=== PATIENT | female | born 1995 | race Hispanic/Latino ===

== ENCOUNTER 2016-10-22 06:32 | Emergency (ER) | payer OTHER ==
[~2016-10-22] VITALS: Ht 149.9 cm; Wt 52.3 kg
[~2016-10-22 06:32] MED LIST: PHEN-777 PO; SULF1TAB7 PO
[2016-10-22 06:37] VITALS: BP 97/50; PULSE 76; RESP 16; O2SAT 99
[2016-10-22] MEDS ORDERED: 0.9% Sodium Chloride 1,000 ML IV ONE (06:45)
--- NOTE | 2016-10-22 06:47 | ED.REPORT ---
HPI-Preg Under 20 Weeks Date of Service Oct 22, 2016 ED Provider: Ej Douglas MD The patient is a female who is currently 11 weeks , who presents to the emergency department complaining of vaginal bleeding and cramping that started a few weeks ago. These symptoms initially lasted for about 2 weeks. The symptoms resolved and she had a followup appointment on October 15 at [facility] women' s health and heart tones were noted during this visit. The bleeding returned today and she noticed bright red blood with dark clots. Her LNMP was July 19. Over the last few weeks she has noticed increased urination frequency, fatigue, and an abnormal white vaginal discharge. She denies fever, chills, dysuria, vomiting or diarrhea. She denies history of sexually transmitted diseases. Nursing Notes Stated Complaint: BLEEDING- 11 WEEKS Chief Complaint: Female Abdominal Pain Nursing Notes Reviewed: Yes Allergies: Coded Allergies: No Known Allergies (Unverified Allergy, Unknown, 01/01/14) Scheduled Sulfamethoxazole/Trimeth 800-160 mg (Bactrim DS) 1 Each Tablet 1 TABLET PO BID Scheduled PRN Phenazopyridine (Phenazopyridine) 200 Mg Tablet 200 MG PO TID PRN PRN dysuria General Time Seen by Provider: 06:47 Chief Complaint Abdominal cramping, Vaginal bleeding Context: : Known 1st trim , ... (2), Para... (1) Hx Obtained From: Patient Arrived By: Walk-in Onset Occurred: More than a week ago... Symptom Duration: Intermittent Progression Since Onset: Intermittent Location: : Suprapubic Quality: Cramping Severity: Current: Mild Severity: Maximum: Moderate Recent Healthcare: No recent doctor visit, No recent hospitalization Similar Sx Previous: No Past Medical History Past Medical History Denies Past Surgical History Denies Family History Noncontributory Smoking History Never Smoker Social History Alcohol Use: "Social" Other Social History: Local resident Ambulatory Status Independent Review of Systems Constitutional: Denies: Chills, Fever GI: Reports: Abdominal pain, Denies: Diarrhea, Vomiting Female: Reports: Pelvic pain, , Vaginal bleeding - abnl, Vaginal discharge, Denies: Dysuria Complete sys rev & neg: except as marked. Physical Exam Initial Vital Signs Vital Signs (First) Date Time Temp Pulse Resp B/P Pulse Ox O2 Delivery O2 Flow Rate FiO2 10/22/16 06:37 37.0 76 16 97/50 99 Room Air Initial VS: Reviewed Head / Eyes: Atraumatic, Normocephalic, PERRL ENT: Mucous membranes moist, Conjunctiva normal, No scleral icterus Neck: Supple, Non-tender, Full range of motion Respiratory: Breath sounds normal, Clear to auscultation, No respiratory distress Cardiovascular: Regular rate & rhythm, Heart sounds normal, Intact distal pulses Back: No CVA tenderness Lymphatic: No lymphadenopathy Extremities: Vascular intact, Neuro intact, No swelling, No tenderness Skin: Warm, Dry, No cyanosis Neurologic: Alert, Oriented, Nonfocal Psychiatric: Mood/affect normal, Behavior normal, Normal thought content General/Constitutional: Awake, Alert Abdomen: Atraumatic, Soft, Non-tender, No guarding, No rebound Female Genitourinary: Electrical And Radio Mock Up Mechanic present, External genitalia NL There is bright red blood in vaginal canal and cervical os however the cervix is completely closed and she is relatively nontender on exam. Lower Extremity / Pelvis / MS: Neurologic intact, Vascular intact, No edema No calf swelling or tenderness. Interpretation & Diagnostics Lab Results Interpretation Result Diagram: 10/22/16 0720 10/22/16 0720 Test 10/22/16 07:20 10/22/16 07:33 White Blood Count 3.5th/mm3 (3.8-10.1) Red Blood Count 3.44mil/mm3 (3.90-5.20) Hemoglobin 10.3g/dL (12.0-15.6) Hematocrit 29.5% (35.0-46.0) Mean Corpuscular Volume 85.8fL (81-100) Mean Corpuscular Hemoglobin 29.9pg (27.0-35.0) Mean Corpuscular Hemoglobin Concent 34.9% (32.0-37.0) Red Cell Distribution Width 12.3% (12.3-15.4) Platelet Count 149bil/L (150-400) Sodium Level 136mEq/L (134-144) Potassium Level 3.2mEq/L (3.5-5.2) Chloride Level 101mEq/L (97-108) Carbon Dioxide Level 19mmol/L (18-29) Blood Urea Nitrogen 8mg/dL (6-20) Creatinine 0.37mg/dL (0.57-1.00) Estimat Glomerular Filtration Rate 316mL/min (>59) Glucose Level 116mg/dL (60-99) Calcium Level 8.3mg/dL (8.5-10.1) Total Bilirubin 0.2mg/dL (0.0-1.2) Aspartate Amino Transf (AST/SGOT) 19U/L (0-50) Alanine Aminotransferase (ALT/SGPT) 21U/L (0-32) Alkaline Phosphatase 62U/L (25-150) Total Protein 6.3g/dL (6.4-8.4) Albumin 4.0g/dL (3.4-5.0) HCG Beta Subunit [id number]/mL Urine Color Yellow (YELLOW) Urine Appearance Hazy (CLEAR,HAZY) Urine pH 6.0 (5.0-8.0) Urine Specific [place] 1.030 (1.003-1.035) Urine Protein Tracemg/dL (NEG,TRACE) Urine Glucose (UA) Negativemg/dL (NEGATIVE) Urine Ketones 15mg/dL (NEGATIVE) Urine Occult Blood Large (NEGATIVE) Urine Nitrite Negative (NEGATIVE) Urine Bilirubin Negative (NEGATIVE) Urine Urobilinogen Normalmg/dL (NORMAL) Urine Leukocyte Esterase Negative (NEGATIVE) Urine RBC >50/hpf (0-2) Urine WBC 0-5/hpf (0-5) Urine Epithelial Cells Occasional/hpf (NONE-MOD) Urine Crystals None seen (NONE SEEN) Urine Bacteria Moderate/hpf (NONE-FEW) Urine Hyaline Casts None/lpf (NONE) Urine Granular Casts None seen (NONE SEEN) Urine Waxy Casts None seen (NONE SEEN) Urine Red Blood Cell Casts None seen (NONE SEEN) Urine White Blood Cell Casts None seen (NONE SEEN) Urine Mucus Present (None Seen) Urine Trichomonas None seen (NONE SEEN) Urine Yeast Few (NONE SEEN) Urinalysis Comment None Urine Culture Reflexed Indicated Re-Eval/Medical Decision Med Decision/Clinical Course The patient is a female who is currently 11 weeks , who presents to the emergency department complaining of vaginal bleeding and cramping that has been intermittent for the last couple of weeks. Here in the emergency department the patient is afebrile with stable vital signs and benign abdominal examination. Pelvic examination reveals bright red blood with a closed cervical os and no clotted material. Transvaginal ultrasound demonstrated intrauterine estimated at 11 weeks 5 days, good pole, small subchorionic hemorrhage, normal heart rate and otherwise unremarkable. Patient had no ongoing bleeding here in the emergency department. Laboratory studies were reviewed including CBC with stable hematocrit of 29, CMP which was unremarkable, Rh positive. 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 Follow- up and return precautions were reviewed in detail the patient was discharged in good condition. Source of Hx: Old records Re-Evaluation/Progress #1: Time of Eval: 06:54 Re-Evaluation/Progress Note: Discussed plan for labs, pelvic exam, and ultrasound. Re-Evaluation/Progress #2: Time of Eval: 07:55 Re-Evaluation/Progress Note: Completed pelvic exam. Discussed plan for discharge. All questions were addressed. Counseled Regarding: Diagnosis, Lab results, Need for follow-up, When/why to return to ED Discharge & Departure Primary Impression: Intrauterine Additional Impressions: Vaginal bleeding Subchorionic hemorrhage Trimester: first trimester Qualified Code: O46.8X1 - Other antepartum hemorrhage, first trimester Disposition: Home Discharge Condition All VS Reviewed: Yes Condition: Stable Patient Instructions: (ED) Additional Instructions: Thank you for seeking care at the emergency room. Our primary goal today in the ED was to evaluate you for any life-threatening conditions. Your evaluation was reassuring. Your ultrasound does show evidence of a intrauterine . You should follow-up with your OBGYN or primary doctor in the next week. You should return to the ED immediately if you develop severe vaginal bleeding, increased pain, fevers, vomiting, lightheadedness, dizziness, weakness or any other concerning signs or symptoms. Thank you for letting us partake in your care today. Referrals: Court Irving MD Attestation Portions of this note were transcribed by Nandini Nolan. I, Dr. Douglas personally performed the history, physical exam and medical decision-making; I reviewed and confirmed the accuracy of the information in the transcribed note. Signed by: Wen Silva, 10/22/2016 at 0845. jE Douglas MD Oct 22, 2016 06:47 Nandini Nolan Oct 22, 2016 06:54
[2016-10-22 07:42] LABS: Mean Corpuscular Hemoglobin 29.9 pg (27.0-35.0); Mean Corpuscular Volume 85.8 fL (81-100)
[2016-10-22 08:06] LABS: APPEARANCE,URINE HAZY (CLEAR,HAZY); COLOR,URINE YELLOW (YELLOW); OCCULT BLOOD,URINE LARGE (NEGATIVE)
[2016-10-22 08:07] LABS: UROBILINOGEN,URINE NORMAL (NORMAL)
[2016-10-22 08:08] VITALS: BP 95/59; PULSE 59; RESP 16; O2SAT 100
[2016-10-22 08:10] LABS: YEAST,URINE FEW (NONE SEEN)
--- NOTE | 2016-10-22 08:32 | DRSVH ---
PROCEDURE: US OB<14 WKS+OB TRANSVAG INDICATIONS: vag bleed/preg OUTSIDE/PRIOR DATING DATA: Last menstrual period (LMP): 07/19/16. LMP-based estimated date of delivery (NORA): 04/25/17. First dating scan (date and location): 09/25/16. Estimated date of delivery (NORA) from first dating scan: 05/12/17. TECHNIQUE: Real-time scanning was performed of the fetus and maternal pelvic organs, with image documentation. Endovaginal scanning was also performed to better visualize the fetus and maternal ovaries. COMPARISON: Located Within [facility] Ultrasound, US, US OB<14 WKS+OB TRANSVAG, 09/25/2016, 15:06. 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 Small perigestational sightly site measuring 2.0 x 0.5 x 0.9 cm. Measurement variability in dating: +/- 4 weeks by LMP, +/- 7 days by mean sac diameter (use before 6 weeks gestation if crown-rump length not able to be measured), +/- 5 days by crown-rump length (6-12 weeks gestation). Maternal organs: Ovaries within normal limits. Limited images through the kidneys demonstrate no hy dronephrosis. IMPRESSION: 11 weeks 5 day single living IUP. Small perigestational site bleed site. Dictated by: Sheldon HENDERSON Interpreted: Ashleigh Bravo MD on 10/22/2016 at 8:30 Transcribed by: ZAIN on 10/22/2016 at 8:32 Approved by: Ashleigh rBavo M.D. on 10/22/2016 at 17:35
== END 2016-10-22 08:01 | disposition home or self-care (01) ==
LOC: SED 06:32
DX: O36.8912 Maternal care for other specified fetal problems, first trimester, fetus 2 (principal); Z3A.11 11 weeks gestation of pregnancy

== ENCOUNTER 2016-10-28 21:12 | Emergency (ER) | payer OTHER ==
[~2016-10-28] VITALS: Ht 149.9 cm; Wt 52.3 kg
[2016-10-28 21:18] VITALS: BP 95/59; PULSE 73; RESP 16; O2SAT 97
--- NOTE | 2016-10-29 00:19 | ED.REPORT ---
HPI-URI / Cough / Cold Date of Service Oct 29, 2016 ED Provider: Richard James DO A 12 week 21 year old female with no pertinent medical history presents to the ED complaining of itching eyes and face. This is accompanied by nasal congestion, rhinorrhea, and a brief rash on her face. The pt began experiencing these symptoms three to four days ago. She has been taking an over the counter allergy medication for two days without relief. The pt does not wear contact lenses. 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 Nursing Notes Stated Complaint: ITCHY EYES,NOSE AND EARS Chief Complaint: FLU/Cold Symptoms Nursing Notes Reviewed: Yes Allergies: Coded Allergies: No Known Allergies (Unverified Allergy, Unknown, 10/28/16) Scheduled Sulfamethoxazole/Trimeth 800-160 mg (Bactrim DS) 1 Each Tablet 1 TABLET PO BID Scheduled PRN Phenazopyridine (Phenazopyridine) 200 Mg Tablet 200 MG PO TID PRN PRN dysuria General Time Seen by MD: 00:19 Chief Complaint Other (Itching eyes/face) Hx Obtained From: Patient Arrived By: Walk-in Onset Occurred: 4 days ago Symptom Duration: Since onset Recent Healthcare: No recent hospitalization, Recent doctor visit Similar Sx Previous: No Past Medical History Past Medical History Denies Past Surgical History Denies Family History Noncontributory Smoking History Never Smoker Social History Alcohol Use: "Social" Other Social History: Good social support, Local resident Ambulatory Status Independent Review of Systems Constitutional: Denies: Fever Ears / Nose / Throat: Reports: Nasal congestion Respiratory: Denies: Non-productive cough, Shortness of breath GI: Denies: Abdominal pain, Vomiting Skin: Reports Itching, Reports Rash Allergy / Immune: Reports: Rhinorrhea Complete sys rev & neg: except as marked. Physical Exam Initial Vital Signs Vital Signs (First) Date Time Temp Pulse Resp B/P Pulse Ox O2 Delivery O2 Flow Rate FiO2 10/28/16 21:18 36.3 73 16 95/59 97 Room Air Initial VS: Reviewed General/Constitutional: Awake, Alert ENT: Atraumatic, Airway patent, Mucous membranes moist watery nasal discharge Respiratory / Chest: Atraumatic, Breath sounds NL, Breath sounds = bilat, No respiratory distress Head / Eyes: Atraumatic, Normocephalic, PERRL, EOMI conjunctiva injected, palpebral eyelids slightly swollen Neck: Atraumatic, Supple, Full range of motion Cardiovascular: Heart rate NL, Regular rhythm, Heart sounds NL Abdomen: Atraumatic, Soft, Non-tender Skin: Atraumatic, Color NL, No rash, Warm, Dry Neurologic: Oriented X3, Speech NL, No motor deficits, No sensory deficits Back: Atraumatic, Full range of motion Upper Extremity / MS: Atraumatic, Full range of motion Lower Extremity / Pelvis / MS: Atraumatic, Full range of motion Psychiatric: Affect NL, Mood NL Interpretation & Diagnostics Pulse Oximetry Interpretation Pulse Oximetry Interpretation: 97% on room air Pulse Oximetry: Pulse Ox normal US FAST Exam viable fetus normal intrauterine gestation heart tone: 140 good movement Exam Performed by: ED physician Exam Type: Diagnostic Exam Interpreted by: ED physician Indication: Re-Eval/Medical Decision Med Decision/Clinical Course I think that Blanca has allergic conjunctivitis and rhinitis. Certainly no signs of bacterial infection. She has some cobblestoning of the upper lids without evidence of conjunctival hyperemia. She has some turbinate hypertrophy without evidence of bacterial infection. I will treat her with a dose of steroids. Recommend Benadryl for symptomatology. If she develops any signs of bacterial infection she will return. Bedside ultrasound of her fetus was very reassuring. Source of Hx: Old records Re-Evaluation/Progress : Time of Eval: 00:27 Patient Status: Condition improved Re-Evaluation/Progress Note: Pt rechecked and US FAST is performed. Diagnosis and the plan for discharge are discussed. The pt understands and agrees with the plan. All questions are addressed at this time. Counseled Regarding: Diagnosis, Need for follow-up, When/why to return to ED Discharge & Departure Impression: Primary Impression: Rhinitis Rhinitis type: allergic Allergic rhinitis type: unspecified Qualified Code : J30.9 - Allergic rhinitis, unspecified Additional Impression: Conjunctivitis Conjunctivitis type: unspecified Laterality: unspecified laterality Qualified Code: H10.9 - Unspecified conjunctivitis Disposition: Home Discharge Condition All VS Reviewed: Yes Condition: Stable Patient Instructions: Allergic Rhinitis (ED), Conjunctivitis (ED) Additional Instructions: Repeat the dose of dexamethasone tomorrow. Stay off of work until Friday. I suspect that you are experiencing seasonal allergies. 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 Return to the emergency department if you develop any new or worsening symptoms. Referrals: [facility] Scribmike Attestation Portions of this note were transcribed by Richard Ha. I, Dr. James personally performed the history, physical exam and medical decision-making; I reviewed and confirmed the accuracy of the information in the transcribed note. Signed by: Wen Alfaro, 10/29/2016 and 0059. copies to: [facility] Richard James DO Oct 29, 2016 00:19 RCIHARD HA Oct 29, 2016 00:26
[2016-10-29] MEDS ORDERED: Dexamethasone 20 mg/2 mL Oral Solution PO ONE (00:25)
[2016-10-29] MEDS ORDERED: diphenhydrAMINE 25 mg Capsule PO ONE (00:25)
[2016-10-29 00:44] VITALS: BP 112/92; PULSE 82; RESP 16; O2SAT 99
== END 2016-10-29 00:39 | disposition home or self-care (01) ==
LOC: SED 21:12
DX: O99.511 Diseases of the respiratory system complicating pregnancy, first trimester (principal); J30.9 Allergic rhinitis, unspecified; H10.9 Unspecified conjunctivitis; Z3A.12 12 weeks gestation of pregnancy

== ENCOUNTER 2017-05-07 04:26 | Inpatient (IN) | payer OTHER ==
[~2017-05-07] VITALS: Ht 149.9 cm; Wt 68.0 kg
[2017-05-07] MEDS ORDERED: Ondansetron 2 mg/mL 2 mL Inj IVPUSH PRN ×3 (07:55→12:15)
[2017-05-07] MEDS ORDERED: Lactated Ringer's 1,000 ML IV PRN (07:55)
[2017-05-07] MEDS ORDERED: Oxytocin 10 Unit/mL Inj IM PRN ×3 (07:55→15:30)
[2017-05-07] MEDS ORDERED: Hemorrhage Kit, Post Partum XX ONE ×3 (07:55→15:30)
[2017-05-07] MEDS ORDERED: Methylergonovine 0.2 mg/mL Inj IM PRN ×3 (07:55→15:30)
[2017-05-07] MEDS ORDERED: Oxytocin 30 Units/500 mL LR 30 UNITS in IV Premix 1 EACH IV PRN ×3 (07:55→15:30)
[2017-05-07] MEDS ORDERED: fentaNYL-PF 50 mCg/mL 2 mL Inj IVPUSH PRN ×2 (07:55→08:15)
[2017-05-07] MEDS ORDERED: Carboprost 250 mCg/mL Inj IM PRN ×3 (07:55→15:30)
[2017-05-07] MEDS ORDERED: Sodium Chloride LOK Flush 10 mL Syringe IVFLUSH PRN ×2 (07:55→08:15)
--- NOTE | 2017-05-07 08:18 | PCM.HPOB ---
Subjective Date of Service: May 07, 2017 Referring Provider: Admitting Physician: Primary Care Physician: Nopcp Attending Physician: Court Irving MD Chief Complaint Labor at term 39weeks 2 days History of Present History of Present Illness Blanca is a Welsh speaking 22 y/o at 39 weeks and 2 days, who presented to [facility] triage and was experiencing moderately strong contractions every 7-14 minutes lasting 60-70 seconds each. Cervix was 3cm/70%/and -3 at that time. Patient ambulated for 2 hours and her cervix progressed to 4-5cm/80% /-2. She was admitted to L&D for expectant management of vaginal delivery. Mother is O+, GBS (-), antibody screen (-), rubella immune, varicella immune, HBSag (-), HIV (-), Hep C (-), GC/Ch (-). She has no high risk issues. Fetus is category 1, @ 120/moderate variability/+A/-D. Vital signs on admission: BP 102/59, HR 91 R 17, Temp 36.9/98.4F OB History: (2), Para (1001) Obstetrical Complications: None Past Medical History Obstetrical History: Prior vaginal delivery ASCUS on 05/2016 Pap Medical History: No prior chronic past medical hx Surgical History: No surgical hx Social History: Lives at home with significant other. 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) Smoking Status: Never Smoker Hx Alcohol Use: Yes (Consumed ETOH eary in , prior to knowing she was .) Hx Substance Use: No Past Family History Family History None contributory Living Arrangement: with Family Genetic Screening/Counseling Genetic Screening/Counseling: Negative Baby father-had child w defect: No Review of Systems Constitutional: Y: Change of appitite, Chills, Fever Eyes: Denies: Blurred Vision, Double Vision, Pain Cardiovascular: Denies: Chest Pain, Edema, SOB while laying flat Respiratory: Denies: Cough, Pleuritic Chest Pain Gastrointestinal: Denies: Abdominal Pain, Change in Appetite Genitourinary: Denies: Dysuria Musculoskeletal: Denies: Neck Pain, Swelling Skin: Denies: Bruising, Rash Neurological: Denies: Change in Speech, Dizziness, Seizures, Tremors Psychologic: Denies: Anxious Medications Home medications None Allergy Coded Allergies: No Known Allergies (Unverified Allergy, Unknown, 10/28/16) Exam Vital Signs Vital signs on admission: BP 102/59, HR 91 R 17, Temp 36.9/98.4F Exam Fetus is category 1, @ 120/moderate variability/+A/-D. Constitutional: Well-developed, Well-nourished, Normal habitus HEENT: Atraumatic, PERRLA, Scleral Anicteric, Mucous Membr Moist/Jarrell Lungs: Clear to Auscultation, Normal Air Movement Heart: Exam Unremarkable, Regular Rate/Rhythm, Normal S1, Normal S2, Murmur ( Systolic grade 2 cooing ) Abdomen: Gravid Lymphatic: Normal: Neck Palpation of Nodes Extremities: Pulses Palpable x4, Warm, No Edema Neurological/Psychiatric: Alert, Oriented X3, Cooperative, No Acute Distress Neuro: Grossly Neurologically Intact, Reflexes 2+, Normal DTRs Labs/Diagnostics Labs Ordered and pending Maternal Blood Type: O (+) Hx Rho(D) Immune Globulin: No Antibody Screen: Negative Group B Strep Results: Negative Previous with GBS: No Rubella: Immune Lab History: Positive for: Hx Chicken Pox, Negative for: Hx Gonorrhea, Hx HIV, Hx Herpes, Hx Syphilis OB Intrapartum Assessment/Plan Assessment # Admit to L and D in labor at term 39 weeks 2 days - Routine intrapartum admit without high risk complications. - Routine admit orders. - Anesthesia consulted and aware patient wishes epidural. Pain Evaluation: Adequate Pain Control Attending Statement Patient seen and examined- she is admitted in active labor. Cervix 9.5 on most recent check by RN. She is comfortable w/ epidural, will anticipate normal spontaneous vaginal delivery. Prabhakar Maciel DO May 07, 2017 08:18 Dodie Martinez MD May 07, 2017 14:08
[2017-05-07 08:52] LABS: Mean Corpuscular Hemoglobin 26.4 pg (27.0-35.0); Mean Corpuscular Volume 80.7 fL (81-100)
[2017-05-07] MEDS: Lactated Ringer's 1,000 ML IV PRN (10:46)
[2017-05-07] MEDS ORDERED: EPHEDrine Sulfate 50 mg/mL Inj IVPUSH PRN (12:15)
[2017-05-07] MEDS ORDERED: Lactated Ringer's 1,000 ML IV SCH ×2 (12:15→15:26)
[2017-05-07] MEDS ORDERED: Atropine 1 mg/10 mL (Code) Syringe IVPUSH PRN (12:15)
[2017-05-07] MEDS ORDERED: Lactated Ringer's 500 ML IV ONE (12:15)
[2017-05-07] MEDS ORDERED: fentaNYL 2 mCg/mL-Bupiv 0.125% 100 ML EPIDURAL SCH (12:15)
--- NOTE | 2017-05-07 12:18 | PCM.HPANE ---
Patient Data Surgeon Admitting Provider:Dodie Martinez MD Attending Provider:Dodie Martinez MD Primary Care Physician:Saida Other Provider:Ford Alexander Anesthesia Reason for Visit LABOR LABOR Ht/WT & BMI Body Mass Index Allergies Coded Allergies: No Known Allergies (Unverified Allergy, Unknown, 10/28/16) Past Anesthesia History Anesthesia History: Denies:: Abnormal Airway, Anesthesia Reactions, Difficult Intubation, Fam Anesthesia Reaction, Fam Malignant Hypertherm, Malignant Hyperthermia Diabetes History Hx Diabetes?: No Medications Active Scripts Phenazopyridine 200 Mg [id number] Mg PO TID PRN dysuria #15 TABLET Ref 0 Prov:Shashi Dong MD 02/11/16 Sulfamethoxazole/Trimeth 800-160 mg (Bactrim DS)1 Each Tablet1 Tablet PO BID # 10 TABLET Ref 0 Prov:Shashi Dong MD 02/11/16 History History of ENT Problems?: No HEENT History: Denies:: Abnormal Airway Cataracts Difficult Intubation Dysphagia Glaucoma Hearing Problem Sinus Problem TMJ Denture Type: None Teeth Condition: Within Normal Limits Hx of Heart Problems?: No Cardiovascular History: Denies:: AICD Abdominal Aortic Aneurism Atrial Fibrillation Cardiac Surgery Chest Pain Congestive Heart Failure Coronary Artery Disease Edema Heart Murmur Hypertension Irregular Heartbeat Pacemaker Peripheral Vascular Rheumatic Fever Thrombophlebitis Valvular Heart Disease Hx of Respiratory Problem?: No Respiratory History: Denies:: Asthma COPD Chest Surgery Cough Dyspnea Emphysema Hemoptysis Oxygen Administration Pneumonia Pulmonary Embolism Tuberculosis Use of C-PAP Machine Use of Inhalers / NEBS Hx Neurologic Problems?: No Neurological History: Denies:: Alzheimer's Disease CVA Dementia Dizziness Headaches Multiple Sclerosis Parkinson's Disease Peripheral Neuropathy Seizures TIA Hx of GI Problems?: Yes Gastrointestinal History: Positive for:: Gastroesphageal Reflux Hx of Problems?: No HX of Peritoneal Dialysis: No Female Hx: Positive for:: Currently Other History/Comment Primip at term desires labor pain relief Hx Musculoskeletal Problems?: No Hx of Psycho/Social Problems?: No Hx Surgeries?: No Hx Any Other Health Problems?: No Hx Diabetes: No Hx Alcohol Use: Yes (Consumed ETOH eary in , prior to knowing she was .)Hx Substance Use: No Smoking Status: Never Smoker Have You Smoked inLast 12 mo: No Stop/Bang Treated for Sleep Apnea?: No Do You Have a CPAP Machine?: No Risk Assessment Category Category 1A: Patient has history of documented sleep apnea, and HAS NOT received any narcotic, sedative or anesthesia administration during this stay. Category 1B: Patient has history of documented sleep apnea, and HAS received any narcotic , sedative or anesthesia administration during this stay Category 2: Patient has SUSPECTED Obstructive Sleep Apnea, and HAS received any narcotic , sedative or anesthesia administration during this stay. Category 3: Patient has SUSPECTED Obstructive Sleep Apnea and HAS NOT received narcotic, sedative or anesthesia administration during this stay. Category 4: Outpatient in Procedural Areas with known sleep apnea or who screen positive for High Risk via the STOP/BANG questionnaire. Exam Exam General Appearance: Alert, Oriented X3, Cooperative, No Acute Distress HEENT/AIRWAY: MP 2 Lungs: Clear to Auscultation, Normal Air Movement Heart: Exam Unremarkable, Regular Rate/Rhythm, Normal S1, Normal S2, Murmur ( Systolic grade 2 cooing ) Meds/Labs/Diagnostics Labs Test 05/07/17 08:20 White Blood Count 7.3th/mm3 (3.8-10.1) Red Blood Count 3.67mil/mm3 (3.90-5.20) Hemoglobin 9.7g/dL (12.0-15.6) Hematocrit 29.6% (35.0-46.0) Mean Corpuscular Volume 80.7fL (81-100) Mean Corpuscular Hemoglobin 26.4pg (27.0-35.0) Mean Corpuscular Hemoglobin Concent 32.8% (32.0-37.0) Red Cell Distribution Width 15.0% (12.3-15.4) Platelet Count 157bil/L (150-400) Plan Impression Patient chart reviewed, patient interviewed and anesthestic plan with risks, benefits, and alternatives discussed, and informed consent obtained. NPO per Anesth. Guidelines: Yes Anesthetic Plan: Epidural Bene/Risks/Altern/Consents: Yes HP Complete Prior to Induction: Yes Carlos Rubin MD May 07, 2017 12:18
[2017-05-07] MEDS ORDERED: fentaNYL 2 mCg/mL-Bupivicaine 0.125% 100 mL Premix EPIDURAL ONE (12:19)
--- NOTE | 2017-05-07 12:49 | PCM.ANEP1 ---
Post Anesthesia PACU Phase 1 Assessment Anesthetic Administered: Epidural Level of Alertness: Awake, talking BANSAL's with Equal Strength: No Pain: No Nausea or Vomiting: No CV Function & Hydration Stable: No Airway Device: Oxygen Delivery: Room Air Lungs: Clear to Auscultation, Normal Air Movement Dermatome Level: T6 (Xyphoid Process) PACU Phase 2 Assessment Complications: No Follow up Care: No Patient Instructions Provided: N/A Comments COmplete labor pain releif Carlos Ruibn MD May 07, 2017 12:49
[2017-05-07] MEDS ORDERED: LANOlin HPA 7 Gm Ointment TOPICAL PRN (15:30)
[2017-05-07] MEDS ORDERED: oxyCODONE-Acetamin 5-325 mg Tablet PO PRN (15:30)
[2017-05-07] MEDS ORDERED: Witch Hazel-Glycerin Pads TOPICAL PRN (15:30)
[2017-05-07] MEDS ORDERED: Benzocaine (Dermoplast) 20% 60 Gm Spray TOPICAL PRN (15:30)
--- NOTE | 2017-05-07 15:32 | PCM.OBVAG ---
Vaginal Delivery Date of Service May 07, 2017 Pre Operative Diagnosis Pre Operative Diagnosis Term gestation at 39 weeks, 2 days Post Operative Diagnosis Post Operative Diagnosis at 39 weeks, 2 days Procedure Obstetical Procedure: Normal Spontaneous Vaginal Delivery Computer Graphic Designer/Catalyst Plant Supervisor Provider and Catalyst Plant Supervisor: MD Kathryn Palomares DO R1 Indication for Procedure Induction: Active labor, Pitocin augmentation, Progressed normally through labor Findings Obstetrical Findings: [place] (Male), Cord (3 Vessel), Presentation (KLEVER), Placenta (Intact/Normal), Perineal Laceration (2nd degree) Analgesia/Medications Obstetrical Anesthesia: Epidural Procedure Details Procedure Details The patient was known to be complete and pushing. She was placed in dorsal lithotomy position. She pushed and head presented anteriorly in KLEVER position. The anterior shoulder delivered without difficulty, followed by the posterior shoulder. There was delayed cord clamping for 60 seconds, cord was clamped and cut. Cord blood was obtained. Pitocin was started per protocol. The placenta delivered spontaneously and intact. Examination of the perineum revealed a 2nd degree tear which was repaired with 3-0 vicryl sutures. Patient tolerated the procedure well. She recovered in labor and delivery with her . Blood Loss & Administration Estimated Blood Loss: 350 Blood Admin during procedure: No Post Procedure Plan Post delivery Condition: Mom stable, Baby stable to nursery VTE Prophylaxis: Kathryn Yanez DO May 07, 2017 15:32 Dodie Martinez MD May 08, 2017 01:39
[2017-05-07] MEDS ORDERED: Sodium Chloride LOK Flush 10 mL Syringe IVFLUSH SCH (16:30)
[2017-05-07] MEDS: Ascorbic Acid 500 mg Tablet PO SCH (20:47)
[2017-05-08 07:08] LABS: Mean Corpuscular Hemoglobin 26.3 pg (27.0-35.0); Mean Corpuscular Volume 81.8 fL (81-100)
[2017-05-08] MEDS: Ascorbic Acid 500 mg Tablet PO SCH (07:28)
--- NOTE | 2017-05-08 07:42 | NUR ---
Social Work: Family Assessment Data: See initial assessment. Patient is a 22 year old female who was admitted on 05/07/17. Patient's insurance is [employer] and no PCP is listed at this time. EMR reviewed. SW met with patient to discuss discharge planning. SW role explained. Patient states that she lives alone with her 4 year old son Kenneth Womack. Patient denies a hx of CPS involvement in the past or present. Patient states that she has not chosen a name for yet. Patient states that FOB is Mu Chadwick however, he is not involved. Patient denies a hx of substance abuse. Patient denies a hx of mental health. 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 Patient states that she receives [facility] state assistance. Patient denies a hx of domestic violence or abuse. Patient considers her mother Oliva to be a good source of support. Patient denies that she or have any special healthcare needs. Upon discharge, will discharge home with MOB. Transportation will be provided by MOB's mother. SW provided patient with a discharge planning checklist and encouraged to call with any questions or concerns. Phone number provided. SW also provided patient with a community resource packet. Assessment: Patient will discharge home with when medically stable. Plan: Patient will discharge home with when medically stable. Transportation will be provided by MOB's mother. Patient has been provided a community resource packet. Patient has no additional needs at this time. VEE Miranda Addendum: 05/08/17 at 0754 by PATRICIA BAUTISTA Amended: Links added.
[2017-05-08] MEDS ORDERED: DOCU-41 PO (08:29)
[2017-05-08] MEDS ORDERED: FERR-74 PO (08:29)
[2017-05-08] MEDS ORDERED: Ascorbic Acid PO (08:29)
[2017-05-08] MEDS ORDERED: IBUP800T28 PO (08:29)
--- NOTE | 2017-05-08 09:01 | PCM.DIOB ---
Obstetrical Disch Instruction Date of Service: May 08, 2017 Dates of Hospitalization Date of Hospital Admission May 07, 2017 at 08:07 Providers Admitting Physician: Dodie Martinez MD Primary Care Physician: Saida Attending Physician: Dodie Martinez MD Discharge Diagnosis Discharge Diagnosis Normal spontaneous vaginal delivery at term 39 weeks and 2 days, following spontaneous per membranes Problems: (1) (normal spontaneous vaginal delivery) Status: Acute ICD Code: O80 (2) 39 weeks gestation of Status: Acute ICD Code: Z3A.39 (3) Active labor at term Status: Acute ICD Code: [id number] Diet Discharge Diet: No restrictions Activity Discharge Activity-General: Pelvic Rest for 6 weeks, Try not to overdue, Be up and about, Balance rest and activity, Activity as pain allows, Activity as energy allows, No lifting >10 pounds for 4-6 weeks Dressing and Incisional Care Hygiene: May shower, DO NOT soak incision under water, NO bathtub, hot tub or whirlpool, Perineal care Additional Instructions Discharge Instructions You have been given a prescription for ibuprofen for pain. You may take this as needed for pain. We are giving you a prescription for iron supplement given your slight Anemia. You have been given a prescription for oral iron and vitamin C. Please take 1 tablet daily of iron with 1 tablet daily of vitamin C. You has been provided a prescription for docusate a stool softener. Please take docusate sodium so that you do not become constipated. If you experience any increased bleeding please call [facility]. If you experience a fever for any reason please return to care and/or call [facility]. If you spike a fever in the next 2 weeks please call [facility]. If you begin to experience dizziness weakness or large amount of bleeding go to the emergency room. This means if you soak 2 or more pads for more than 2 hours than call the clinic or go to the Emergency Room. You have been set up for an appointment for follow-up in 6 weeks at [facility]. Please check your BP several times between now and then and write them in a log to bring to your 2 week clinic visit. If you experience depression, Please seek help by calling [facility] or the Emergency Room. Nothing per vagina for 6 weeks (this includes tampons and intercourse). No lifting more than 10 pounds for 6 weeks. If your breast become red and warm and swollen continue to breast-feed and seek medical attention for evaluation for mastitis. Drink plenty of water and eat lots of fruits and vegetables. Follow Up Plan Follow Up Plan Follow-up in 6 weeks at [facility]. Follow-up appointment: Weeks (6) Prabhakar Maciel DO May 08, 2017 09:01
--- NOTE | 2017-05-08 09:36 | PCM.DC.OB ---
Obstetrical Discharge Summary Date of Service May 08, 2017 Date of hospital admission May 07, 2017 at 08:07 Date of Discharge: May 08, 2017 Providers Admitting Physician: Dodie Martinez MD Primary Care Physician: Saida Attending Physician: Dodie Martinez MD Diagnosis at Time of Discharge Normal spontaneous vaginal delivery at term 39 weeks and 2 days, following spontaneous per membranes Problems: (1) (normal spontaneous vaginal delivery) Status: Acute ICD Code: O80 (2) 39 weeks gestation of Status: Acute ICD Code: Z3A.39 (3) Active labor at term Status: Acute ICD Code: [id number] Consultations Anesthesia epidural. Brief History and Physical: Blanca is a Swedish speaking 22 y/o at 39 weeks and 2 days, who presented to [facility] triage and was experiencing moderately strong contractions every 7-14 minutes lasting 60-70 seconds each. Cervix was 3cm/70%/and -3 at that time. Patient ambulated for 2 hours and her cervix progressed to 4-5cm/80% /-2. She was admitted to L&D for expectant management of vaginal delivery. Mother is O+, GBS (-), antibody screen (-), rubella immune, varicella immune, HBSag (-), HIV (-), Hep C (-), GC/Chlamydia (-). She has no high risk issues. Fetus is category 1, @ 120/moderate variability/+A/-D. Vital signs at time of discharge: BP 104/60,HR 74 R 16, Temp 36. 4 C/97.5 F Exam at time of discharge: General: Alert and oriented 3 no acute distress resting comfortably in the bed. HEENT: Head normocephalic /atraumatic no ecchymoses, eyes equally round , nares patent, Chest: Heart regular rate and rhythm with grade 2/6 murmur systolic detected, lungs: CTAB all strange Abdomen: Nontender, , fundus firm just below the level of the umbilicus, no rebound, no guarding, and abdomen appropriately tender. Genitourinary: No CVA tenderness Extremities: Minimal pedal edema is pitting bilaterally the level of the ankles , pulses equal bilaterally Psychiatric: Patient's mood is and affect is congruent, she is cheerful and communicative. Hospital Course: Blanca is a Swedish speaking 22 y/o now 002 at 39 weeks and 2 days , who presented to [facility] triage experiencing moderately strong contractions every 7-14 minutes lasting 60-70 seconds each. Cervix was 3cm/70%/and -3 at that time. Patient ambulated for 2 hours and her cervix progressed to 4-5cm/80%/-2. She was admitted to L&D for expectant management of vaginal delivery. Had spontaneous rupture membranes at 1124. Labor onset was 0749 on 05/07/2017 and her cervix was complete at 1332 on 05/07/2017. Phenergan pushing at 1435 and labored for total of 7 hours 29 minutes with normal spontaneous vaginal delivery 1456 on 05/07/2017 of a 3053 gram male liveborn with Apgars 9 and 9. ROM time was 3 hours 32 minutes. Mother sustained a second-degree perineal tear that was repaired in standard fashion, and did well post delivery without issue or complaint. Other has remained afebrile throughout her admission. Mother was discharged with prescription for once daily oral iron and vitamin C as well as docusate at [place] softener and ibuprofen for pain. Mother was given instructions to return to care if at any point she became febrile. She was instructed to return to care for signs of mastitis. She was given instructions to follow-up in [facility] in 6 weeks for her check. ([Ascorbic Acid]) 500 MG TABLET 500 MG PO BIDWM Prescribed by: PRABHAKAR MELÉNDEZ DO Docusate Sodium (Colace) 100 Mg Capsule 100 MG PO BID PRN PRN For Constipation Prescribed by: PRABHAKAR MELÉNDEZ DO Ferrous Sulfate (Feosol) 325 Mg Tablet 325 MG PO DAILY Prescribed by: PRABHAKAR MELÉNDEZ DO Ibuprofen (Ibuprofen) 800 Mg Tablet 800 MG PO Q6H PRN PRN For Pain Prescribed by: PRABHAKAR MELÉNDEZ DO Phenazopyridine (Phenazopyridine) 200 Mg Tablet 200 MG PO TID PRN PRN dysuria Prescribed by: SAMMY LEWIS MD Discontinued Medications Sulfamethoxazole/Trimeth 800-160 mg (Bactrim DS) 1 Each Tablet 1 TABLET PO BID Prescribed by: SAMMY LEWIS MD Disposition Discharge home with baby Discharge Activity-General: Pelvic Rest for 6 weeks, Try not to overdue, Be up and about, Balance rest and activity, Activity as pain allows, Activity as energy allows, No lifting >15 pounds for 2 weeks Patient instructions Patient instructions were given Prabhakar Meléndez DO May 08, 2017 09:36
[2017-05-08 11:41] VITALS: BP 98/61; PULSE 81; RESP 16
== END 2017-05-08 11:45 | disposition home or self-care (01) | DRG 775 ==
LOC: FBCO 04:26 → EDSTATUS 08:06 → FBC 08:07
PROVIDERS: ADMIT Obstetrics & Gynecology; ATTEND Obstetrics & Gynecology
PROC: 10E0XZZ Delivery of Products of Conception, External Approach (ICD-10-PCS; principal; 2017-05-07)
PROC: 0KQM0ZZ Repair Perineum Muscle, Open Approach (ICD-10-PCS; 2017-05-07)
DX: O70.1 Second degree perineal laceration during delivery (principal); Z37.0 Single live birth; Z3A.39 39 weeks gestation of pregnancy